=== PATIENT | male | born 1995 | race African-American/Black ===

== ENCOUNTER 2018-10-14 05:17 | Emergency (ER) | payer SELFPAY ==
[2018-10-14] MEDS ORDERED: AMOXicillin 250 MG CAP ONE (06:02)
[2018-10-14] MEDS ORDERED: predniSONE 20 MG TAB ONE ×3 (06:06)
== END 2018-10-14 06:09 | disposition home or self-care (01) ==
LOC: MADERS 05:17
DX: J02.9 Acute pharyngitis, unspecified (principal); J45.909 Unspecified asthma, uncomplicated
CPT/HCPCS: 87081; 87430; 99283; J7512